=== PATIENT | male | born 1950 | race Caucasian/White ===

== ENCOUNTER 2023-06-30 06:04 | Day surgery (SDC) | payer BC ==
[2023-06-28 16:29] VITALS: BMI 25.1
[2023-06-30] MEDS ORDERED: BUPIVACAINE HCL/EPINEPHRINE/PF 30 ML VIAL IJ ONE (07:06)
[2023-06-30] MEDS ORDERED: EPINEPHrine 1:1,000 1,000 MCG/ML ML ONE (07:06)
[2023-06-30] MEDS ORDERED: MIDAZOLAM HCL 2 MG/2 ML SINGLE DOSE VIAL ONE (07:13)
[2023-06-30] MEDS ORDERED: ROPIVACAINE HCL 0.5% 30ML VIAL ONE (07:13)
[2023-06-30] MEDS ORDERED: PROPOFOL 20 ML ONE ×4 (08:09→09:26)
[2023-06-30] MEDS ORDERED: HYDROmorphone HCL/PF 1 MG/ML VIAL ONE (08:22)
[2023-06-30] MEDS ORDERED: ACETAMINOPHEN INJECTION 100 ML IVPB ONE (08:34)
[2023-06-30] MEDS ORDERED: ACETAMINOPHEN 1000 MG/100 ML BAG IVPB ONE (09:28)
[2023-06-30] MEDS ORDERED: ONDANSETRON 4 MG/2 ML VIAL IVPUSH PRN (09:39)
[2023-06-30] MEDS ORDERED: oxyCODONE HCL 5 MG TABLET PO PRN ×2 (09:39)
[2023-06-30] MEDS ORDERED: LACTATED RINGERS SOLUTION 1,000 ML IV SCH (09:45)
[2023-06-30 11:09] VITALS: RESP 19; TEMP 96.8
[2023-06-30] MEDS ORDERED: oxyCODONE HCL 5 MG TABLET ONE (11:22)
[2023-06-30 11:35] VITALS: BP 111/63; PULSE 57
[2023-06-30] MEDS ORDERED: ACETAMINOPHEN 500 MG TABLET (FP) PO SCH (15:00)
== END 2023-06-30 12:15 | disposition home or self-care (01) ==
LOC: FASU 06:04
PROVIDERS: ATTEND Orthopaedic Surgery
PROC: 0LS30ZZ Reposition Right Upper Arm Tendon, Open Approach (ICD-10-PCS; 2023-06-30)
PROC: 0RBJ4ZZ Excision of Right Shoulder Joint, Percutaneous Endoscopic Approach (ICD-10-PCS; principal; 2023-06-30 08:06)
PROC: 0RNJ4ZZ Release Right Shoulder Joint, Percutaneous Endoscopic Approach (ICD-10-PCS; 2023-06-30 08:06)
DX: S46.011A Strain of muscle(s) and tendon(s) of the rotator cuff of right shoulder, initial encounter (principal); S43.084A Other dislocation of right shoulder joint, initial encounter; X58.XXXA Exposure to other specified factors, initial encounter; Y93.9 Activity, unspecified; Y92.9 Unspecified place or not applicable
CPT/HCPCS: 94760; C1713